=== PATIENT | female | born 1985 | race Two or more races ===

== ENCOUNTER 2018-07-13 00:07 | Emergency (ER) | payer OTHER ==
[~2018-07-13] VITALS: Ht 167.6 cm; Wt 89.8 kg
[~2018-07-13 00:07] MED LIST: ATABEX PRENATAL1 TAB; FOLIC ACID1 MG
[2018-07-13] MEDS ORDERED: ZOFRAN ODT4 MG PO (05:00)
[2018-07-13] MEDS ORDERED: PEPCID40 MG PO (05:00)
== END 2018-07-13 06:16 | disposition home or self-care (01) ==
LOC: ER 00:07
DX: O26.891 Other specified pregnancy related conditions, first trimester (principal); K52.9 Noninfective gastroenteritis and colitis, unspecified; R10.2 Pelvic and perineal pain; Z34.01 Encounter for supervision of normal first pregnancy, first trimester

== ENCOUNTER 2018-10-19 12:23 | Outpatient (CLI) | payer OTHER ==
[~2018-10-19 12:23] MED LIST changes: +PEPCID40 MG PO; +ZOFRAN ODT4 MG PO
== END 2018-10-19 18:50 | disposition home or self-care (01) ==
LOC: OBS/DEL 12:23
DX: O60.02 Preterm labor without delivery, second trimester (principal); Z34.02 Encounter for supervision of normal first pregnancy, second trimester

== ENCOUNTER 2018-12-21 00:24 | Inpatient (IN) | payer OTHER ==
[~2018-12-21] VITALS: Ht 167.6 cm; Wt 99.8 kg
== END 2018-12-28 15:47 | disposition home or self-care (01) | DRG 833 ==
LOC: OBS/DEL 00:24 → LDR 15:28 → OB/GYN 15:28 → LDR 15:34 → OB/GYN 12-22 16:52
PROVIDERS: ADMIT Obstetrics & Gynecology
PROC: BW40ZZZ Ultrasonography of Abdomen (ICD-10-PCS; principal; 2018-12-21)
PROC: 4A1HXCZ Monitoring of Products of Conception, Cardiac Rate, External Approach (ICD-10-PCS; 2018-12-21)
PROC: BY4FZZZ Ultrasonography of Third Trimester, Single Fetus (ICD-10-PCS; 2018-12-22)
DX: O47.03 False labor before 37 completed weeks of gestation, third trimester (principal); K52.89 Other specified noninfective gastroenteritis and colitis; Z34.83 Encounter for supervision of other normal pregnancy, third trimester

== ENCOUNTER 2019-01-02 21:45 | Inpatient (IN) | payer OTHER ==
[~2019-01-02] VITALS: Ht 167.6 cm; Wt 102.5 kg
[2019-01-02] MEDS ORDERED: ZANTAC150 M3 PO (22:05)
[2019-01-02] MEDS ORDERED: PRENATAL TABLE1 EAC1 PO (22:05)
[2019-01-03] MEDS ORDERED: PRENATAL TABLE1 EAC1 PO (14:38)
[2019-01-03] MEDS ORDERED: ZANTAC150 M3 PO (14:40)
== END 2019-01-07 13:25 | disposition home or self-care (01) | DRG 798 ==
LOC: OBS/DEL 21:45 → LDR 01-03 13:31 → OB/GYN 01-04 17:35
PROVIDERS: ADMIT Obstetrics & Gynecology
PROC: 0UL70ZZ Occlusion of Bilateral Fallopian Tubes, Open Approach (ICD-10-PCS; 2019-01-04)
PROC: 4A1HXCZ Monitoring of Products of Conception, Cardiac Rate, External Approach (ICD-10-PCS; 2019-01-04)
PROC: 10E0XZZ Delivery of Products of Conception, External Approach (ICD-10-PCS; principal; 2019-01-04 12:00)
DX: O80 Encounter for full-term uncomplicated delivery (principal); Z37.0 Single live birth; Z3A.37 37 weeks gestation of pregnancy; Z30.2 Encounter for sterilization